=== PATIENT | male | born 1985 | race Caucasian/White ===

== ENCOUNTER 2024-03-18 03:50 | Emergency (ER) | payer OTHER, SELFPAY ==
[2024-03-18 03:55] VITALS: BP 136/95; PULSE 77; O2SAT 96; BMI 25.8
--- NOTE | 2024-03-18 04:19 | ED.ABDPAIN1 ---
HPI - Abdominal Pain General Chief Complaint: Abdominal Pain Stated Complaint: abd pain Time Seen by Provider: 03/18/24 04:10 Source: patient Mode of arrival: walk-in Limitations: no limitations History of Present Illness HPI narrative: discomfort of his abdomen for past 2 weeks. About an hour ago he picked up his daughter and experienced acute pain of his left abdomen. Was not able to sleep. No nausea, diarrhea. has mid line surgical scar from 2 years ago. anterior approach to his spine Related Data Allergies Allergy/AdvReac Type Severity Reaction Status Date / Time No Known Drug Allergies Allergy Verified 03/18/24 03:55 Review of Systems ROS Status of ROS 10 or more systems reviewed and unremarkable except as noted in history and below Exam Constitutional Vital Signs, click to edit/add: Last Vital Signs Pulse 77 03/18/24 03:55 Resp 18 03/18/24 03:55 BP 136/95 H 03/18/24 03:55 Pulse Ox 96 03/18/24 03:55 O2 Del Method Room Air 03/18/24 03:55 Common normals: no apparent distress, average body habitus, oriented x3, no limitations, healthy appearing, alert and well nourished [facility] Common normals: normocephalic and head/scalp atraumatic Eye Common normals: PERRL and EOMs intact bilaterally Respiratory Common normals: normal respiratory effort, no retractions, no use of accessory muscles and clear to auscultation bilaterally Cardio Common normals: regular rate, regular rhythm, S1 normal heart sound and S2 normal heart sound GI Other: mid line scar. Palpable abdominal wall hernia easily reducible Extremity Common normals: normal to inspection and full ROM Neuro Common normals: oriented x3, CN's II-XII intact bilaterally, moves all extremities and no focal motor deficits Psych Appearance: grossly normal Course Vital Signs Vital signs: Vital Signs Pulse Rate 77 03/18/24 03:55 Respiratory Rate 18 03/18/24 03:55 Blood Pressure 136/95 H 03/18/24 03:55 Pulse Oximetry 96 03/18/24 03:55 Oxygen Delivery Method Room Air 03/18/24 03:55 Pulse Rate 77 03/18/24 03:55 Respiratory Rate 18 03/18/24 03:55 Blood Pressure 136/95 H 03/18/24 03:55 Pulse Oximetry 96 03/18/24 03:55 Oxygen Delivery Method Room Air 03/18/24 03:55 MDM - Abdominal Pain MDM Narrative Medical decision making narrative: patient presents with abdominal pain. Found to have abdominal wall hernia (incisional hernia) that is easily reduced. Patient informed of the diagnosis and discharged to follow up with gen. surgery Discharge Plan Discharge Stand Alone Forms: Portal Instructions Chief Complaint: Abdominal Pain Clinical Impression: Abdominal wall hernia Patient Disposition: Home, Self-Care Print Language: Slovak Instructions: Incisional Hernia (DC) Additional Instructions: call Dr Michaels's office tuesday to schedule an appointment this week Referrals: Physician,Non-Staff, MD [Primary Care Provider] - 1 week
== END 2024-03-18 04:36 | disposition home or self-care (01) ==
PROVIDERS: Emergency Provider Internal Medicine
DX: K43.9 Ventral hernia without obstruction or gangrene (principal)
CPT/HCPCS: 99281